=== PATIENT | male | born 1975 | race American Indian/Alaskan Native ===

== ENCOUNTER 2019-06-17 15:49 | Emergency (ER) | payer OTHER ==
[2019-06-17 16:13] VITALS: BP 145/101
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
[2019-06-17] MEDS ORDERED: IBUPROFEN 800 MG TAB PO ONE (17:44)
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
[2019-06-17] MEDS ORDERED: oxyCODONE /ACETAMINOPHEN 5-325MG TAB PO ONE (18:08)
[2019-06-17] MEDS ORDERED: CYCLOBENZAPRINE 10 MG TAB PO ONE (18:08)
== END 2019-06-17 18:40 | disposition home or self-care (01) ==
LOC: ED 15:49
DX: M54.5 Low back pain (principal); R51 Headache; R03.0 Elevated blood-pressure reading, without diagnosis of hypertension; V49.49XA Driver injured in collision with other motor vehicles in traffic accident, initial encounter; Y93.89 Activity, other specified; Y92.410 Unspecified street and highway as the place of occurrence of the external cause; Y99.8 Other external cause status
CPT/HCPCS: 72040; 72100